=== PATIENT | female | born 1955 | race Caucasian/White ===

== ENCOUNTER → 2017-12-03 | Outpatient (CLI) | payer BC ==
--- NOTE | 2017-12-05 13:18 | MM ---
Reason for exam: screening (asymptomatic). Last mammogram was performed 6 years and 10 months ago. History: Patient is postmenopausal. Family history of breast cancer in paternal grandmother at age 50. Physical Findings: A clinical breast exam by your physician is recommended on an annual basis and results should be correlated with mammographic findings. MG Screening Mammo w CAD Bilateral CC and MLO view(s) were taken. Prior study comparison: January 25, 2011, mammogram, performed at [facility]. There are scattered fibroglandular densities. No significant changes when compared with prior studies. ASSESSMENT: Negative, BI-RAD 1 RECOMMENDATION: Routine screening mammogram of both breasts in 1 year.
== END | disposition home or self-care (01) ==
LOC: RADMAMWWP 13:00
PROVIDERS: ATTEND Obstetrics & Gynecology
DX: Z12.31 Encounter for screening mammogram for malignant neoplasm of breast (principal)
CPT/HCPCS: 77067

== ENCOUNTER → 2018-02-18 | Outpatient (CLI) | payer BC ==
--- NOTE | 2018-02-18 22:47 | MR ---
EXAMINATION TYPE: MR lumbar spine wo con DATE OF EXAM: 02/18/2018 6:35 PM COMPARISON: NONE HISTORY: Low Back pain Right Leg Pain x3 months Multiplanar, MultiSpin echo imaging of the lumbar spine was performed. L1-L2: Normal disc appearance without desiccation. No herniation, protrusion or disc bulging. No ca nal stenosis is present. Foramina are patent bilaterally. L2-L3: Normal disc appearance without desiccation. No herniation, protrusion or disc bulging. No ca nal stenosis is present. Foramina are patent bilaterally. L3-L4: Mild disc desiccation. Grade 1 anterolisthesis L3 on L4 measuring 2 mm. Mild posterior disc bu lge without evidence for rema disc herniation hypertrophy of the ligamentum flavum and facet joint a rthropathy resulting in borderline central stenosis. L4-L5: Moderate to severe disc desiccation. Mild posterior disc bulge. No evidence for herniation pro trusion or central stenosis. No definite foraminal encroachment. L5-S1: Severe disc desiccation. Posterior disc bulge. Ventral and dorsal spondylosis mild effacement ventral thecal sac. No evidence for sternal herniation or central stenosis. Mild bilateral foraminal encroachment. Lumbar segments are intact. No paraspinal masses are identified. Conus medullaris has a normal appe arance. IMPRESSION: 1. Degenerative disc disease with disc bulging is noted.
== END | disposition home or self-care (01) ==
LOC: RADMRIMAIN 18:01
PROVIDERS: ATTEND Orthopaedic Surgery
DX: M51.26 Other intervertebral disc displacement, lumbar region (principal); M51.36 Other intervertebral disc degeneration, lumbar region
CPT/HCPCS: 72148

== ENCOUNTER → 2018-03-18 | Outpatient (CLI) | payer BC ==
[2018-03-18 13:04] VITALS: PULSE 81; RESP 16
--- NOTE | 2018-03-18 13:30 | P.HPIM ---
History of Present Illness H&P Date: 03/18/18 Chief Complaint: low back and right hip pain This is a 62-year-old patient referred by Dr. Clayton for chronic pain in low back with radiation to right hip. Patient has been taking only OTC medications for pain. Patient denies adverse drug effects from medications. Patient also denies new-onset weakness, bowel/bladder incontinence, or any other signs or symptoms of cauda equina syndrome. There are no signs of acute intoxication, and no indications of medication diversion or overuse. Patient notes that pain worsens significantly with standing up straight and walking long distances, and improves with rest, ice, and medication. Patient did also have hip surgery believing that hip OA was causing her problem, but her pain has persisted despite previous surgery and subsequent physical therapy. Patient has used several types of medications for pain, including NSAIDS, Tylenol. Patient HAS had surgery (R JAMES). Patient HAS NOT had injections previously. Patient HAS had physical therapy recently without substantial relief. In addition to above, 13-point review of systems is also negative for chest pain , shortness of breath, changes in vision, changes in hearing, new onset weakness , abdominal pain, diarrhea, extreme fatigue, malaise, fever, skin changes, homicidal or suicidal ideation, or bowel or bladder incontinence. Vital Signs: Reviewed in EMR Gen: WDWN, AAOx3, NAD HEENT: NCAT, EOMI, hearing grossly normal Pulm: resp unlabored Abd: soft, NT, ND Neck: supple, trachea midline ROM in flexion lumbar spine: reduced ROM in extension lumbar spine: reduced Lumbar paravertebral tenderness: + Facet loading: + R side > L side SI joint tenderness: + R side Ramiro's test: neg Straight leg raise: neg Past Medical History Past Medical History: Asthma, Osteoarthritis (OA), Thyroid Disorder Additional Past Medical History / Comment(s): back pain, History of Any Multi-Drug Resistant Organisms: None Reported Past Surgical History: Section, Joint Replacement, Tonsillectomy Additional Past Surgical History / Comment(s): anterior approach rt hip replacement. Past Anesthesia/Blood Transfusion Reactions: Motion Sickness, Postoperative Nausea & Vomiting (PONV) Past Psychological History: No Psychological Hx Reported Smoking Status: Former smoker Past Alcohol Use History: Rare Additional Past Alcohol Use History / Comment(s): QUIT SMOKING 2000, smoked for 5 yrs, 1/2 PPD Past Drug Use History: None Reported - Past Family History Mother Family Medical History: Cancer Additional Family Medical History / Comment(s): lung cancer Father Family Medical History: Cancer Additional Family Medical History / Comment(s): Prostate cancer Sister(s) Family Medical History: Diabetes Mellitus Daughter(s) Family Medical History: No Reported History Son(s) Family Medical History: No Reported History Medications and Allergies Home Medications Medication Instructions Recorded Confirmed Type Loratadine [Claritin] 10 mg PO DAILY 09/12/16 03/18/18 History Albuterol Inhaler [Ventolin Hfa 1 - 2 puff INHALATION Q6HR PRN 09/17/16 History Inhaler] Ibuprofen [Motrin] 800 mg PO TID PRN 03/14/18 03/18/18 History Levothyroxine Sodium [Synthroid] 150 mcg PO DAILY 03/14/18 03/18/18 History Acetaminophen Tab [Tylenol] 2 tab PO BID PRN 03/18/18 03/18/18 History Allergies Allergy/AdvReac Type Severity Reaction Status Date / Time Sulfa (Sulfonamide Allergy Rash/Hives Verified 03/18/18 12:48 Antibiotics) gold Au 198 AdvReac Rash/Hives Verified 03/18/18 12:48 nickel AdvReac Rash/Hives Verified 03/18/18 12:48 Physical Exam Vitals: Vital Signs Pulse Resp Pulse Ox 03/18/18 12:51 81 16 99 Results Comments: MRI lumbar spine without contrast demonstrates mild disc desiccation at the L3- L4 level with mild posterior disc bulge without evidence for rema disc herniation. There is hypertrophy of ligamentum flavum and facet joint arthropathy resulting in borderline central stenosis. At the L4-L5 level is moderate to severe disc desiccation with mild posterior disc bulge. At the L5- S1 level there is severe disc desiccation with posterior disc bulge and ventral and dorsal spondylosis causing mild effacement of the ventral thecal sac. There is no evidence for central stenosis. Assessment and Plan (1) Lumbar spondylosis Current Visit: Yes Status: Chronic Code(s): M47.816 - SPONDYLOSIS W/O MYELOPATHY OR RADICULOPATHY, LUMBAR REGION SNOMED Code(s): 209290063 (2) Lumbar degenerative disc disease Current Visit: Yes Status: Chronic Code(s): M51.36 - OTHER INTERVERTEBRAL DISC DEGENERATION, LUMBAR REGION SNOMED Code(s): 80999159 Plan: Plan: 1. Explanation: Opioid and psychological risk scores were reviewed. Diagnoses , prognoses, and multiple treatment options including but not limited to physical therapy, interventional therapies, adjuvant medical therapies, narcotic medication therapies, and surgery were discussed with the patient and all questions were answered to the patient's satisfaction. 2. Opioid agreement: no opioids prescribed today 3. Counseling: The patient was counseled extensively on BODY MASS INDEX, EXERCISE. Specifically, the patient was instructed regarding the importance of weight control, and exercise in the context of both chronic pain and overall health. 4. Procedures: R lumbar MBB; if little relief, consider R SIJ injection 5. Consultations: none, patient has tried physical therapy and conservative treatment with medications and hip surgery without relief, and she does not want opioids 6. Investigations: none 7. Medications: none prescribed 8. Morphine equivalents per day prescribed: zero 9. Disposition: f/u for procedure as scheduled PQRS measures: 1-Patient's medications are documented in the chart. 2-Tobacco use is negative, counseling given 3-Patient has not had a pneumococcal vaccine. 4-Advanced care planning discussed, patient unable to give. 5-Opioid contract NOT signed with the patient. 6-Pain positive, follow-up visit or procedure scheduled 7-Patient's blood pressure measured and documented, and patient will follow up with the primary care due to hypertension. 8-Patient's weight was measured, and body mass index ABOVE the normal limits, and counseling was done. Patient instructed to follow up with PCP. 9-Patient WAS NOT identified as an unhealthy alcohol user. Time with Patient: Greater than 30
== END | disposition home or self-care (01) ==
LOC: PNWHC3 12:35
PROVIDERS: ATTEND Anesthesiology
DX: G89.29 Other chronic pain (principal); M54.5 Low back pain; M51.36 Other intervertebral disc degeneration, lumbar region; M47.816 Spondylosis without myelopathy or radiculopathy, lumbar region; M25.551 Pain in right hip; M16.10 Unilateral primary osteoarthritis, unspecified hip; J45.909 Unspecified asthma, uncomplicated; Z79.1 Long term (current) use of non-steroidal anti-inflammatories (NSAID); Z79.891 Long term (current) use of opiate analgesic; Z98.890 Other specified postprocedural states; Z87.891 Personal history of nicotine dependence; Z96.641 Presence of right artificial hip joint; Z79.51 Long term (current) use of inhaled steroids; Z88.2 Allergy status to sulfonamides; Z91.048 Other nonmedicinal substance allergy status
CPT/HCPCS: 99211

== ENCOUNTER 2018-05-13 07:18 | Day surgery (SDC) | payer BC ==
[2018-05-08 14:10] VITALS: BMI 30.4
[~2018-05-13 07:18] MED LIST: LACTATED RINGERS 1,000 ML IV SCH
[2018-05-13 08:22] VITALS: RESP 16; TEMP 97.7
[2018-05-13] MEDS ORDERED: LIDOCAINE 1% 20 ML VIAL (10MG/ML) FOR IV START INTRADERMA ONE (08:37)
--- NOTE | 2018-05-13 09:26 | P.PCN ---
Date of Procedure: 05/13/18 Procedure(s) Performed: PREOPERATIVE DIAGNOSIS : 1- Lumbar spondylosis with Facet Arthropathy without myelopathy . 2- Lumber degenerative disc disease POSTOPERATIVE DIAGNOSIS: 1- Lumbar spondylosis with Facet Arthropathy without myelopathy . 2- Lumber degenerative disc disease PROCEDURE: Diagnostic Right L3 -4 , L4 -5 , and L5-S1 medial branch block under fluoroscopy ANESTHESIA: Local with 1% lidocaine 3 ml , moderate sedation with intravenous Versed 1 mg and Fentanyl 50 mcg. EBL: Minimal COMPLICATION: None. IV FLUIDS: 100 mL of normal saline. PROCEDURE INDICATION: Chronic low back pain secondary to Facet arthropathy unresponsive to conservative treatment. PROCEDURE DESCRIPTION: the patient was seen and identified in the preop holding area , risks and benefits and possible complications of the procedure and alternative were discussed with the patient, and the patient agreed to proceed with the procedure and signed the consent IV was started and vital signs monitored during the procedure and fluoroscopy was used to maximize the benefit and accuracy of the needle placement, and sedation was given to decrease patient anxiety, patient was taken to the procedure room and placed in prone position vital signs monitored in the back prepped with chlorhexidine X3 then under strict sterile technique using a right oblique fluoroscopy ,the junction of the transverse process and the superior articulating process of the right L3- 4 , L4- 5, and L5-S1 vertebra which corresponding to the fluoroscopy image of the eye of the Kenn dog on the block side for the medial branches and subsequently , after local infiltration of skin and subcu tissuies with lidocaine 1% one mL at each level ,then 22- gauge Quincke-type needles , 3 needle was used , each one of them placed at the junction of the base of the transverse process and the superior articular process at the appropriate level, and the needle was advanced until the periosteum contacted, needle placement confirmed with AP oblique and lateral view and after appropriate needle placement confirmed, and after negative aspiration for heme and CSF and there was no paresthesia 1-1/2 mL of Marcaine 0.5% mixed with 40 mg Kenalog , then half mL injected at each level after negative aspiration the needle subsequently removed intact. At the end of the procedure and the needles removed and a bandage applied after the skin was cleaned the cleaning solution patient taken to recovery room in stable condition and monitors in the recovery room for 20-30 minutes and discharged home in stable condition after discharge criteria met and patient will follow up with the pain clinic in 2-4 weeks
[2018-05-13] MEDS ORDERED: IV FLUID CONTINUATION 1,000 ML IV ONE (09:35)
[2018-05-13 09:37] VITALS: BP 106/58; PULSE 61
--- NOTE | 2018-05-13 11:47 | FL ---
Fluoroscopy HISTORY: Pain 9 seconds fluoroscopy time supplied to the referring clinician. 2 intraoperative C-arm images docume nt the procedure. See dictated report from anesthesia.
== END 2018-05-13 12:16 | disposition home or self-care (01) ==
LOC: ORPAIN 07:18
PROVIDERS: ATTEND Specialist
DX: G89.29 Other chronic pain (principal); M47.816 Spondylosis without myelopathy or radiculopathy, lumbar region; M51.36 Other intervertebral disc degeneration, lumbar region; J45.909 Unspecified asthma, uncomplicated; Z78.0 Asymptomatic menopausal state; Z88.2 Allergy status to sulfonamides; Z91.048 Other nonmedicinal substance allergy status
CPT/HCPCS: 64493; 64494; 64495; J2250; J3010

== ENCOUNTER 2018-05-27 08:36 | Day surgery (SDC) | payer BC ==
[2018-05-21 09:11] VITALS: BMI 30.4
[2018-05-27 09:12] VITALS: RESP 16; TEMP 98.6
[2018-05-27] MEDS ORDERED: LIDOCAINE 1% 20 ML VIAL (10MG/ML) FOR IV START INTRADERMA ONE (09:29)
--- NOTE | 2018-05-27 10:54 | P.PCN ---
Date of Procedure: 05/27/18 Surgeon: Kyler Quigley Pathology: none sent Condition: stable Disposition: PACU Description of Procedure: PREOPERATIVE DIAGNOSIS : 1- Lumbar spondylosis with Facet Arthropathy without myelopathy . 2- Lumber degenerative disc disease POSTOPERATIVE DIAGNOSIS: 1- Lumbar spondylosis with Facet Arthropathy without myelopathy . 2- Lumber degenerative disc disease PROCEDURE: Diagnostic Right L3 -4 , L4 -5 , and L5-S1 medial branch block under fluoroscopy ANESTHESIA: Local with 1% lidocaine 3 ml , moderate sedation with intravenous Versed only. . EBL: Minimal COMPLICATION: None. PROCEDURE INDICATION: Chronic low back pain secondary to Facet arthropathy unresponsive to conservative treatment. PROCEDURE DESCRIPTION: the patient was seen and identified in the preop holding area , risks and benefits and possible complications of the procedure and alternative were discussed with the patient, and the patient agreed to proceed with the procedure and signed the consent IV was started and vital signs monitored during the procedure and fluoroscopy was used to maximize the benefit and accuracy of the needle placement, and sedation was given to decrease patient anxiety, patient was taken to the procedure room and placed in prone position vital signs monitored in the back prepped with chlorhexidine X3 then under strict sterile technique using a right oblique fluoroscopy ,the junction of the transverse process and the superior articulating process of the right L3- 4 , L4- 5, and L5-S1 vertebra which corresponding to the fluoroscopy image of the eye of the Kenn dog on the block side for the medial branches and subsequently , after local infiltration of skin and subcu tissuies with lidocaine 1% one mL at each level ,then 22- gauge Quincke-type needles , 3 needle was used , each one of them placed at the junction of the base of the transverse process and the superior articular process at the appropriate level, and the needle was advanced until the periosteum contacted, needle placement confirmed with AP oblique and lateral view and after appropriate needle placement confirmed, and after negative aspiration for heme and CSF and there was no paresthesia 1-1/2 mL of Ropivacaine 0.5% mixed with 40 mg Kenalog , then half mL injected at each level after negative aspiration the needle subsequently removed intact. At the end of the procedure and the needles removed and a bandage applied after the skin was cleaned the cleaning solution patient taken to recovery room in stable condition and monitors in the recovery room for 20-30 minutes and discharged home in stable condition after discharge criteria met and patient will follow up with the pain clinic in 2-4 weeks
[2018-05-27] MEDS ORDERED: IV FLUID CONTINUATION 1,000 ML IV ONE (11:05)
[2018-05-27 11:21] VITALS: BP 141/78; PULSE 64
--- NOTE | 2018-05-27 11:30 | FL ---
EXAMINATION TYPE: FL guided pain mgmt statistic DATE OF EXAM: 05/27/2018 HISTORY: Flouroscopy time 8 seconds of fluoroscopy provided. IMPRESSION: 1. Fluoroscopy time.
== END 2018-05-27 11:35 | disposition home or self-care (01) ==
LOC: ORPAIN 08:36
PROVIDERS: ATTEND Anesthesiology
DX: G89.29 Other chronic pain (principal); M47.816 Spondylosis without myelopathy or radiculopathy, lumbar region; Z88.2 Allergy status to sulfonamides; J45.909 Unspecified asthma, uncomplicated
CPT/HCPCS: 64493; 64494; 64495; J2250; J3301; 99152

== ENCOUNTER → 2018-06-25 | Outpatient (CLI) | payer BC ==
[2018-06-25 13:33] VITALS: BP 157/97; PULSE 86; RESP 16
--- NOTE | 2018-06-25 13:43 | P.PN ---
Progress Note - Text Progress Note Date: 06/25/18 Patient presents for follow-up visit status post right lumbar medial branch blocks 2. Patient states she had 100% relief for greater than 2 weeks with each procedure. She states that she had overall complete resolution of symptoms with improved ADLs, was able to walk and hike on her last vacation. Patient is requesting right side lumbar radiofrequency ablation. Patient did not require any [id number] medications for pain during the past 2 weeks of pain relief Patient also denies new-onset weakness, bowel/bladder incontinence, or any other signs or symptoms of cauda equina syndrome. There are no signs of acute intoxication, and no indications of medication diversion or overuse. In addition to above, 13-point review of systems is also negative for chest pain , shortness of breath, changes in vision, changes in hearing, new onset weakness , abdominal pain, diarrhea, extreme fatigue, malaise, fever, skin changes, homicidal or suicidal ideation, or bowel or bladder incontinence. Vital Signs: Reviewed in EMR Gen: WDWN, AAOx3, NAD HEENT: NCAT, EOMI, hearing grossly normal Pulm: resp unlabored Abd: soft, NT, ND Neck: supple, trachea midline ROM in flexion lumbar spine: reduced ROM in extension lumbar spine: reduced Lumbar paravertebral tenderness: + Facet loading: + R side > L side SI joint tenderness: + R side Ramiro's test: neg Straight leg raise: neg Imaging MRI lumbar spine without contrast demonstrates mild disc desiccation at the L3- L4 level with mild posterior disc bulge without evidence for rema disc herniation. There is hypertrophy of ligamentum flavum and facet joint arthropathy resulting in borderline central stenosis. At the L4-L5 level is moderate to severe disc desiccation with mild posterior disc bulge. At the L5- S1 level there is severe disc desiccation with posterior disc bulge and ventral and dorsal spondylosis causing mild effacement of the ventral thecal sac. There is no evidence for central stenosis. Assessment: 1. Lumbar spondylosis without myelopathy 2. Anteriolisthesis of L3-L4 3. Lumbar degenerative disc disease Plan: 1. Explanation: Opioid and psychological risk scores were reviewed. Diagnoses , prognoses, and multiple treatment options including but not limited to physical therapy, interventional therapies, adjuvant medical therapies, narcotic medication therapies, and surgery were discussed with the patient and all questions were answered to the patient's satisfaction. 2. Opioid agreement: no opioids prescribed today 3. Counseling: The patient was counseled extensively on BODY MASS INDEX, EXERCISE. Specifically, the patient was instructed regarding the importance of weight control, and exercise in the context of both chronic pain and overall health. 4. Procedures: Right lumbar radiofrequency ablation L3-L4, L4-L5, L5-S1 5. Consultations: none, patient has tried physical therapy and conservative treatment with medications and hip surgery without relief, and she does not want opioids 6. Investigations: none 7. Medications: none prescribed 8. Morphine equivalents per day prescribed: zero 9. Disposition: Right lumbar radiofrequency ablation L3-L4, L4-L5, L5-S1 PQRS measures: 1-Patient's medications are documented in the chart. 2-Tobacco use is negative, counseling given 3-Patient has not had a pneumococcal vaccine. 4-Advanced care planning discussed, patient unable to give. 5-Opioid contract NOT signed with the patient. 6-Pain positive, follow-up visit or procedure scheduled 7-Patient's blood pressure measured and documented, and patient will follow up with the primary care due to hypertension. 8-Patient's weight was measured, and body mass index ABOVE the normal limits, and counseling was done. Patient instructed to follow up with PCP. 9-Patient WAS NOT identified as an unhealthy alcohol user.
== END | disposition home or self-care (01) ==
LOC: PNWHC3 13:18
PROVIDERS: ATTEND Anesthesiology
DX: M43.16 Spondylolisthesis, lumbar region (principal); M51.36 Other intervertebral disc degeneration, lumbar region; M47.816 Spondylosis without myelopathy or radiculopathy, lumbar region
CPT/HCPCS: 99211

== ENCOUNTER → 2018-08-04 | Outpatient (CLI) | payer BC ==
[2018-08-04 15:55] VITALS: BP 143/104; PULSE 98; RESP 16
--- NOTE | 2018-08-05 08:51 | P.PAINPG ---
Subjective Progress Note Date: 08/04/18 This is follow-up visit for this patient with a history of severe and chronic low back pain secondary to lumbar degenerative disc diseases , lumbar spondylosis with facet arthropathy, sacroiliitis We have done interventional pain procedures diagnostic medial branch block lumbar area Right side L3-4, L4-5 ,L5-S1 patient with 100% relief after each block, and the patient is supposed to be scheduled for radiofrequency ablation of the medial branch lumbar area on the right side, but her insurance did not approve the procedure, patient currently complaining of low back pain mainly on the right side in the buttock area Patients currently on Motrin and Tylenol Patient denies any side effects of the medication, denies excessive drowsiness or sleepiness, denies suicidal ideation, and reports that the current pain medication is helping to control the pain and improve activity of daily living Patient denies any motor or sensory deficit , patient denies any fever or night sweats, denies any change in the bowel movements or urination Physical Examinations : 1-Constitutional : Cooperative , not in acute distress . 2-HEENT : nech ; supple , no Lymphadenopathy , no Thyromegaly , normal thyroid size . eyes : no ptosis , no icterus, no photophobia . ENT : normal of hearing , normal oropharynx , no Thrush . 3- Respiratory : Chest clear to auscultations Bilaterally , no wheezing , no Rhonchi . 4- Cardiovascular : regular rate and rhythem , S1 , S2 , no S3 , no S4. 5- Gastrointestinal : abdomen soft no tenderness , bowel sounds positive all four quadrents , no organomegally . 6- Genitourinary : Defferred . 7- neurologic: Cranial nerve II to XII intact , no focal neurological deffecit . 8- Psychatric: alert , oriented X 3 , appropriate affect , intact judgment and insight . 9- Lymphatic : no Lymphadenopathy . 10- Musculoskeltal : exams of the Lumber spine =motor strength lower extremities ,thigh and legs .5/5 deep tendon reflexes : normal Knee Jerk , normal ankle Jerk . lumber facet Loading Test positive strait leg raising test negative bilaterally Fabere test negative bilaterally Range of motion: Range of motion in flexion of the lumbar spine 90 degrees Range of motion range of motion of extension of the lumbar spine 30 Sever tenderness over the Sacroiliac joint on the Right , Assessment and plan = Chronic low back pain secondary to lumbar degenerative disc disease , lumbar spondylosis with facet arthropathy without myelopathy on the right sacroiliitis Patient had 100% decrease in her pain level after the diagnostic medial branch block, and she will be in good candidate to have radiofrequency ablation of the medial branch lumbar area on the right side, her [employer] insurance did not approve the radiofrequency ablation of the medial branch lumbar area, and because patient had clinical finding of right sacroiliitis, she could benefit from right-sided sacroiliac joint steroid injection Procedure risk and benefits and alternatives discussed with the patient and she agreed with the preceding Objective - Vital Signs Vital signs: Vital Signs Temp Pulse 98 08/04/18 15:48 Resp 16 08/04/18 15:48 BP 143/104 08/04/18 15:48 Pulse Ox 98 08/04/18 15:48 Intake & Output 08/04/18 08/05/18 08/05/18 18:59 06:59 18:59 Weight 90.718 kg PQRS Measure Charge Sheet Measure #130: Documentation of Current Meds in Medical Chart: Patient's medications documented in chart Measure #226: Tobacco Use: Screen & Cessation Intervention: Pt not a tobacco user Measure #111: Pneumonia Vaccination: Pneumococcal vaccine administered or previously received Measure #47: Advance Care Plan: Advance care planning discussed & documented, pt chose/unable to give Measure #412: Opioid Treatment Agreement: No documentation of signed opioid treatment agreement Measure #408: Opioid Therapy Follow-up Evaluation: Patient had NO f/u eval minimum every 3 months during opioid therapy Measure #317: Preventitive Care & Scrn High Bld Press & F/U: Pre-hypertensive or hypertensive BP documented, pt will f/u with PCP Measure #128: Body Mass Index (BMI) Screening & Follow-up: BMI documented ABOVE normal parameters - f/u documented Measure #131: Pain Assessment & Follow-up: Pain positive & plan documented, Follow-up scheduled Measure #431: Unhealthy Alcohol Use Preventative Care & Scrn: Patient not identified as an unhealthy alcohol user PQRS Narrative: Smoking Status Former smoker Do You Want the Pneumonia Yes Vaccine AT THIS TIME? Blood Pressure 143/104 Pain Intensity [Right Lower 0 Back] Scale Used Numeric (1 - 10) Hx Alcohol Use (MH) No Home Medications: Ambulatory Orders Loratadine [Claritin] 10 mg PO DAILY 09/12/16 Albuterol Inhaler [Ventolin Hfa Inhaler] 1 - 2 puff INHALATION Q6HR PRN Ibuprofen [Motrin] 800 mg PO TID PRN 03/14/18 Levothyroxine Sodium [Synthroid] 175 mcg PO DAILY 03/14/18 Acetaminophen Tab [Tylenol] 1,000 mg PO BID PRN 03/18/18 Phentermine HCl 37.5 mg PO DAILY 05/08/18 Fluticasone Nasal [place] [Flonase Nasal [place]] 2 spr EA NOSTRIL BID 07/11/18 Controlled Substance Measures - Controlled Substance Measures Is patient prescribed a controlled substance at discharge?: No When asked, does pt state using other controlled substances?: No If prescribed controlled substance>3 days was MAPS reviewed?: No If Rx opioid, was Start Talking consent form obtained?: No If opioid is for acute pain is fill amount 7 days or less?: No Was information provided regarding opioid addiction?: No
== END | disposition home or self-care (01) ==
LOC: PNWHC3 13:47
PROVIDERS: ATTEND Specialist
DX: G89.29 Other chronic pain (principal); M54.5 Low back pain; M51.36 Other intervertebral disc degeneration, lumbar region; M47.816 Spondylosis without myelopathy or radiculopathy, lumbar region; M46.86 Other specified inflammatory spondylopathies, lumbar region; M46.1 Sacroiliitis, not elsewhere classified; Z79.1 Long term (current) use of non-steroidal anti-inflammatories (NSAID); Z79.899 Other long term (current) drug therapy; Z87.891 Personal history of nicotine dependence
CPT/HCPCS: 99211

== ENCOUNTER 2018-08-25 06:24 | Day surgery (SDC) | payer BC ==
[2018-08-22 10:08] VITALS: BMI 30.4
[2018-08-25] MEDS ORDERED: SODIUM CHLORIDE 0.9% 500 ML 500 ML IV SCH (06:32)
[2018-08-25 06:44] VITALS: RESP 20; TEMP 97.7
--- NOTE | 2018-08-25 07:51 | P.PCN ---
Date of Procedure: 08/25/18 Procedure(s) Performed: Procedure= Right sacral iliac joints steroid injection under fluoroscopy guidance Preoperative diagnosis= 1-right sacroiliitis 2-lumbar spondylosis with facet arthropathy Postoperative diagnosis= same as preop diagnosis Complication = none Condition= stable Anesthesia= moderate sedation with intravenous Versed 2 mg ,and local infiltration with lidocaine 1% 3 mL Indication for the procedure= patient complaining of low back pain , examination was positive for severe tenderness over the right sacroiliac joints and patient diagnosed with sacroiliitis, for this reason he/ she was good candidate for sacroiliac joint steroid injection. Description of the procedure= procedure risk and benefits discussed with the patient, including but not limited, risk of infection and bleeding, and ALLERGIC reaction to the medication and not complete pain relief and patient agreed with the preceding patient taken to the operating room, placed in prone position or standard monitors applied to the patient then after induction of anesthesia back prepped with chlorhexidine 3 times , Then under strict sterile technique, first I did the right sacroiliac joint the which was identified under fluoroscopy guidance been local infiltration of the skin and subcu interstitial with lidocaine 1% then 22-gauge Quincke Needle advanced slowly under fluoroscopy and placed in the right sacroiliac joint needle placement confirmed with AP and oblique and lateral view and after appropriate needle placement confirmed and after negative aspiration, or heme , then Ropivacaine 0.5% 3 mL, and 40 mg of Kenalog mixed together and injected in the right sacroiliac joint after negative aspiration patient tolerated the procedure well without any complication.,and she will follow up in clinic 3 weeks
[2018-08-25 08:18] VITALS: BP 130/82; PULSE 81
--- NOTE | 2018-08-25 09:00 | FL ---
EXAMINATION TYPE: FL guided pain mgmt statistic DATE OF EXAM: 08/25/2018 HISTORY: Flouroscopy time 2 seconds of fluoroscopy provided. IMPRESSION: 1. Fluoroscopy time.
== END 2018-08-25 08:28 | disposition home or self-care (01) ==
LOC: ORPAIN 06:24
PROVIDERS: ATTEND Specialist
DX: M46.1 Sacroiliitis, not elsewhere classified (principal); M47.816 Spondylosis without myelopathy or radiculopathy, lumbar region
CPT/HCPCS: 27096; J2250; J3301

== ENCOUNTER → 2018-12-10 | Outpatient (CLI) | payer OTHER ==
--- NOTE | 2018-12-11 01:06 | MR ---
EXAMINATION TYPE: MR knee RT wo con DATE OF EXAM: 12/10/2018 COMPARISON: None HISTORY: Right Knee Pain and Swelling, x 2 weeks TECHNIQUE: Multiplanar, multisequence imaging of the right knee is performed without IV contrast. FINDINGS: There is mild knee joint effusion. There are varicose veins around the knee. The anterior and posteri or cruciate ligaments are intact. There is increased signal in the anterior horn of the lateral meniscus horizontally and vertically. T here is a horizontal increased signal within the posterior horn lateral meniscus. There is mild degenerative thinning of the medial meniscus without a complete tear. I see no bony sammy tructive process. There is no evidence of a fracture. The collateral ligaments appear intact. There i s mild subcutaneous edema anterior to the knee and proximal tibia. IMPRESSION: Mild knee joint effusion. Subcutaneous edema. Varicose veins. Complex tear of the anterior horn of the lateral meniscus. Horizontal tear posterior horn lateral men iscus. Minimal osteoarthritic narrowing of the lateral joint space.
== END | disposition home or self-care (01) ==
LOC: RADMRIMAIN 18:00
PROVIDERS: ATTEND Orthopaedic Surgery
DX: S83.271A Complex tear of lateral meniscus, current injury, right knee, initial encounter (principal); M17.11 Unilateral primary osteoarthritis, right knee

== ENCOUNTER → 2019-01-21 | Outpatient (CLI) | payer OTHER ==
[2019-01-21 08:04] LABS: Basophils # (A) 0.1 k/uL (0-0.2); Basophils % (A) 1 %; Eosinophils # (A) 0.5 k/uL (0-0.7); Eosinophils % (A) 6 %; HCT 43.9 % (34.0-46.0); HGB 13.8 gm/dL (11.4-16.0); Lymphocytes # (A) 1.4 k/uL (1.0-4.8); Lymphocytes % (A) 20 %; MCHC 31.3 g/dL (31.0-37.0); MCV 86.1 fL (80.0-100.0); Mean Platelet Volume 7.2; Monocytes # (A) 0.5 k/uL (0-1.0); Monocytes % (A) 8 %; Neutrophils # (A) 4.4 k/uL (1.3-7.7); Neutrophils % (A) 63 %; Platelet Count 235 k/uL (150-450); RBC 5.09 m/uL (3.80-5.40); RDW 13.1 % (11.5-15.5)
[2019-01-21 08:31] LABS: Potassium 4.6 mmol/L (3.5-5.1)
== END | disposition home or self-care (01) ==
LOC: LABPAT 06:59
PROVIDERS: ATTEND Orthopaedic Surgery
DX: Z01.818 Encounter for other preprocedural examination (principal); Z01.812 Encounter for preprocedural laboratory examination; M23.91 Unspecified internal derangement of right knee
CPT/HCPCS: 36415; 80051; 85025; 93005

== ENCOUNTER 2019-02-12 11:08 | Day surgery (SDC) | payer OTHER ==
[2019-02-06 15:42] VITALS: BMI 30.4
--- NOTE | 2019-02-11 21:30 | HP ---
HISTORY AND PHYSICAL REASON FOR ADMISSION: Surgery scheduled 02/12/2019. HISTORY OF PRESENT ILLNESS: Lani Slater is a 63-year-old patient seen with progressive right knee pain. Treatment options were discussed. She elected to proceed with arthroscopy. Consent was obtained. PAST MEDICAL HISTORY: Hypothyroidism, asthma. PAST SURGICAL HISTORY: section, lithotripsy. DAILY MEDICATIONS: Levothyroxine, ibuprofen, Claritin. ALLERGIES: SULFA. SOCIAL HISTORY: She denies tobacco use. PHYSICAL EXAMINATION: Evaluation of the right knee range of motion 0 to 130 degrees. Mild effusion. Tenderness medial joint line. Tenderness lateral joint line. Positive lateral Ruth's. Ligaments stable. Hip rotation without pain. Distal neurovascular exam is intact right knee. RADIOGRAPHS: Right knee radiographs revealed moderate osteoarthritic changes. Right knee MRI revealed lateral meniscal tear. IMPRESSION: Internal derangement, right knee lateral meniscal tear. PLAN: Right knee arthroscopy with partial meniscectomy and debridement. Surgery scheduled 02/12/2019. MMODL / IJN: [id number] /
[~2019-02-12 11:08] MED LIST changes: +DEXAMETHASONE SOD PHOSPHATE 10 MG/ML 1 ML VIAL IV ONE; +LIDOCAINE 1% 20 ML VIAL (10MG/ML) FOR IV START INTRADERMA PRN; +MIDAZOLAM (PF) 2 MG/2 ML VIAL IV PRN; +ONDANSETRON 4 MG/2 ML VIAL IVP ONE; +ceFAZolin IN SWFI 2 GM/20 ML SYRINGE IVP ONE; +fentaNYL (PF) 50 MCG/ML 2 ML AMP IV PRN
[2019-02-12] MEDS ORDERED: SCOPOLAMINE 1.5MG/72HR PATCH TRANSDERM ONE (12:00)
[2019-02-12] MEDS ORDERED: LIDOCAINE 1% INJ 10MG/ML (20 ML MDV) ONE (13:06)
[2019-02-12] MEDS ORDERED: HYDROmorphone (PF) 1 MG/ML ONE (13:06)
[2019-02-12] MEDS ORDERED: PROPOFOL 10 MG/ML 20 ML VIAL IV ONE (13:06)
[2019-02-12] MEDS ORDERED: MIDAZOLAM 2 MG/2 ML VIAL ONE (13:06)
[2019-02-12] MEDS ORDERED: fentaNYL (PF) 50 MCG/ML 2 ML AMP ONE (13:06)
[2019-02-12] MEDS ORDERED: LACTATED RINGERS 1,000 ML IV ONE (13:35)
[2019-02-12 14:11] VITALS: TEMP 97
[2019-02-12] MEDS: HYDROmorphone 1 MG/ML 1 ML SYRINGE IVP ONE ×2 (14:15→14:34)
--- NOTE | 2019-02-12 14:15 | P.OP ---
Date of Procedure: 02/12/19 Preoperative Diagnosis: Internal derangement right knee Postoperative Diagnosis: 1. Tear lateral meniscus right knee 2. 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 Reactive synovitis medial, lateral and suprapatellar compartments right knee Procedure(s) Performed: 1. Arthroscopic partial lateral meniscectomy right knee 2. Arthroscopic chondroplasty lateral femoral condyle right knee 3. Arthroscopic chondroplasty patella right knee 4. Arthroscopic microfracture lateral femoral condyle right knee 5. Arthroscopic partial synovectomy medial, lateral and suprapatellar compartments right knee Anesthesia: MARKA, local Surgeon: Vargas Clayton Estimated Blood Loss (ml): 8 Pathology: none sent Condition: stable Disposition: PACU Indications for Procedure: 63-year-old patient seen with progressive right knee pain. After having treatment options discussed, she elected to proceed with arthroscopy. Operative Findings: See description of procedure Description of Procedure: Patient was taken to the operative suite. Patient underwent a general anesthetic by the department of anesthesia. Patient was given preoperative antibiotics. The] lower extremity was placed in a well-padded arthroscopic leg olvera. The right leg was prepped and draped in the normal sterile orthopedic fashion. A lateral parapatellar and suprapatellar incision was made. Trochars were inserted. Arthroscopy was initiated. Suprapatellar pouch revealed diffuse thick reactive synovitis. The patellofemoral joint appeared to articulate congruently. There was grade 2/3 chondromalacia of the patella with some osteochondral tears present involving the medial facet. The scope was guided into the medial gutter. No loose bodies or plica were identified. The scope was then guided into the medial compartment. A medial parapatellar incision was made. Trocar inserted followed by probe. There was some mild superficial fraying of the posterior horn medial meniscus. There was thick reactive synovitis anteriorly. There were grade 1 chondromalacia changes of the medial compartment. I debrided the superficial fraying of the meniscus utilizing motorize shaver. I performed a partial synovectomy decompressing the thick reactive synovitis anteriorly. There was good decompression of the synovitis. Scope and probe were then guided into the intercondylar notch. Cruciates were identified, probed and found to be stable. The scope and probe were then guided into lateral compartment. There was a complex tear involving the anterior horn, mid body and posterior horn lateral meniscus. There were areas of grade 3/4 chondromalacia lateral femoral condyle with osteochondral tears present. There was thick reactive synovitis anteriorly. I performed a partial lateral meniscectomy down to stable tissue. I performed a chondroplasty of the medial femoral condyle down to stable tissue. I performed a partial synovectomy decompressing reactive synovitis. The residual meniscus was stable. There was good decompression of synovitis. There was a small area bony exposure in that weightbearing surface lateral femoral condyle post chondroplasty. I performed a microfracture to that area penetrating the bone with resultant bleeding at the microfracture site. The residual osteochondral surface was found to be stable. The scope was in guided back into the suprapatellar compartment. I used a motorized shaver into the super patellar compartment. I debrided piecemeal fragments of meniscus I encountered. I performed a chondroplasty of the patella down to stable osteochondral tissue. I performed a partial synovectomy decompressing the reactive synovitis. The shaver was removed. I took one more look on the entire knee, no residual debris. Instruments were now removed from the joint. The joint was infiltrated with 0.5% Marcaine. Steri-Strips were applied to the portal sites. Sterile dressings were applied. The patient was placed into a JUVENTINO hose. No tourniquet was utilized. The patient was awakened, transferred to a bed and taken to recovery stable satisfactory condition.
[2019-02-12 14:32] VITALS: RESP 16
[2019-02-12] MEDS ORDERED: KETOROLAC 30 MG/ML 1 ML VIAL IVP ONE (14:51)
[2019-02-12 15:25] VITALS: BP 164/90; PULSE 77
== END 2019-02-12 16:05 | disposition home or self-care (01) ==
LOC: OR 11:08
PROVIDERS: ATTEND Orthopaedic Surgery
DX: M23.341 Other meniscus derangements, anterior horn of lateral meniscus, right knee (principal); M23.351 Other meniscus derangements, posterior horn of lateral meniscus, right knee; M23.321 Other meniscus derangements, posterior horn of medial meniscus, right knee; M94.261 Chondromalacia, right knee; M65.861 Other synovitis and tenosynovitis, right lower leg; J45.909 Unspecified asthma, uncomplicated; E03.9 Hypothyroidism, unspecified; Z88.2 Allergy status to sulfonamides; Z79.890 Hormone replacement therapy; Z79.1 Long term (current) use of non-steroidal anti-inflammatories (NSAID); Z79.899 Other long term (current) drug therapy; Z91.09 Other allergy status, other than to drugs and biological substances
CPT/HCPCS: 29881; 29879; 29876; J2250; J1100; J2405; J2001; J3010; J1885; J1170; J2704; J0690

== ENCOUNTER → 2020-12-14 | Outpatient (CLI) | payer OTHER ==
--- NOTE | 2020-12-14 11:28 | CT ---
EXAMINATION TYPE: CT abdomen pelvis wo con DATE OF EXAM: 12/14/2020 COMPARISON: HISTORY: Lt renal colic CT DLP: 1116.8 mGycm Automated exposure control for dose reduction was used. TECHNIQUE: Helical acquisition of images from the lung bases through the pelvis. FINDINGS: Lack of contrast could compromise sensitivity. LUNG BASES: No significant abnormality is appreciated. AORTA: No significant abnormality is appreciated. LIVER/GB: No significant abnormality is appreciated. PANCREAS: Fatty replaced. SPLEEN: No significant abnormality is seen. ADRENALS: No significant abnormality is seen. KIDNEYS: No significant abnormality is seen. REPRODUCTIVE ORGANS: No significant abnormality is seen. URINARY BLADDER: No significant abnormality is seen. BOWEL: Small duodenal diverticulum present at the level the head of the pancreas. Extensive divertic ular change noted within the sigmoid colon. FREE AIR: No Free Air is visible. ASCITES: None visible. PELVIC ADENOPATHY: None visualized. RETROPERITONEAL ADENOPATHY: No Retroperitoneal Adenopathy visible. OSSEOUS STRUCTURES: Streak artifact due to patient's right hip arthroplasty obscures detail within t he pelvis. Degenerative disc changes are present in the visualized spine, minimal anterolisthesis gra de 1 L3-4, L4-5, loss of disc height L5-S1 with associated vacuum phenomenon, there is facet arthropa thy. IMPRESSION: NO EVIDENT RENAL CALCULI. NO HYDRONEPHROSIS. DIVERTICULOSIS. NONCONTRAST EXAM. LIMITATIONS DESCRIB ED. ADDITIONAL FINDINGS ABOVE.
== END | disposition home or self-care (01) ==
LOC: RADCTMAIN 09:20
PROVIDERS: ATTEND Urology
DX: K57.30 Diverticulosis of large intestine without perforation or abscess without bleeding (principal); K57.10 Diverticulosis of small intestine without perforation or abscess without bleeding; K86.89 Other specified diseases of pancreas; Z88.2 Allergy status to sulfonamides; Z91.048 Other nonmedicinal substance allergy status
CPT/HCPCS: 74176

== ENCOUNTER → 2021-08-09 | Outpatient (CLI) | payer OTHER, MEDICARE ==
[2021-08-09 15:23] LABS: Basophils # (A) 0.1 k/uL (0-0.2); Basophils % (A) 1 %; Eosinophils # (A) 0.2 k/uL (0-0.7); Eosinophils % (A) 2 %; HCT 44.3 % (34.0-46.0); HGB 14.2 gm/dL (11.4-16.0); Lymphocytes # (A) 1.8 k/uL (1.0-4.8); Lymphocytes % (A) 23 %; MCHC 32.1 g/dL (31.0-37.0); MCV 90.1 fL (80.0-100.0); Mean Platelet Volume 7.8; Monocytes # (A) 0.6 k/uL (0-1.0); Monocytes % (A) 7 %; Neutrophils # (A) 5.2 k/uL (1.3-7.7); Neutrophils % (A) 65 %; Platelet Count 247 k/uL (150-450); RBC 4.91 m/uL (3.80-5.40); RDW 13.1 % (11.5-15.5)
[2021-08-09 15:30] LABS: Prothrombin Time 10.8 sec (9.0-12.0)
[2021-08-09 15:31] LABS: Calcium 9.3 mg/dL (8.4-10.2); Potassium 3.8 mmol/L (3.5-5.1)
== END | disposition home or self-care (01) ==
LOC: LABPAT 14:30
PROVIDERS: ATTEND Orthopaedic Surgery
DX: Z01.812 Encounter for preprocedural laboratory examination (principal)
CPT/HCPCS: 80048; 85025; 85610; 87070

== ENCOUNTER 2021-08-14 06:02 | Day surgery (SDC) | payer OTHER ==
[2021-08-10 12:58] VITALS: BMI 31.3
--- NOTE | 2021-08-13 12:10 | HP ---
HISTORY AND PHYSICAL REASON FOR ADMISSION: Surgery is 08/14/2021 HISTORY OF PRESENT ILLNESS: aLni Slater is a 66-year-old patient seen with symptomatic left hip osteoarthritis. After discussing treatment options, she elected to proceed with direct anterior left total hip arthroplasty. Consent regarding the procedure was obtained. Medical clearance provided by Dr. Yovani Cavanaugh. PAST MEDICAL HISTORY: Hypothyroidism. PAST SURGICAL HISTORY: section, lithotripsy, right total hip arthroplasty. MEDICATIONS: Ibuprofen, levothyroxine. ALLERGIES: SULFA. SOCIAL HISTORY: She denies current tobacco use. PHYSICAL EXAMINATION: Evaluation of the left hip, she has diffuse tenderness about the hip girdle. Limited range of motion with severe pain. Positive hip impingement sign. Straight leg raise negative. Her distal neurovascular exam is intact. RADIOGRAPHS: Radiographs of the left hip reveal severe osteoarthritic changes. IMPRESSION: 1. Left hip osteoarthritis. 2. Hypothyroidism. PLAN: Direct anterior left total hip arthroplasty. Surgery scheduled for 08/14/2021. MMODL / IJN: [id number] /
[~2021-08-14 06:02] MED LIST changes: +ACETAMINOPHEN TAB 500 MG TAB PO PRN; -DEXAMETHASONE SOD PHOSPHATE 10 MG/ML 1 ML VIAL IV ONE; +DEXAMETHASONE SOD PHOSPHATE 4 MG/ML 1 ML VIAL IV ONE; -LIDOCAINE 1% 20 ML VIAL (10MG/ML) FOR IV START INTRADERMA PRN; +MELOXICAM 7.5 MG TAB PO PRN; -MIDAZOLAM (PF) 2 MG/2 ML VIAL IV PRN; +ROPIVACAINE 246.25 MG, EPINEPHrine 0.5 MG, KETOROLAC 30 MG, cloNIDine HCL/PF 80 MCG, WA... MISCELLANE PRN; +ROPIVACAINE/EPI/CLONIDINE/KET 50 ML SYRINGE MISCELLANE PRN; +TRANEXAMIC ACID 1,000 MG in SODIUM CHLORIDE 0.9% 100 ML IVPB PRN; -ceFAZolin IN SWFI 2 GM/20 ML SYRINGE IVP ONE; -fentaNYL (PF) 50 MCG/ML 2 ML AMP IV PRN
[2021-08-14] MEDS ORDERED: LIDOCAINE 1% (10MG/ML) FOR IV START INTRADERMA ONE (06:52)
[2021-08-14] MEDS ORDERED: SCOPOLAMINE 1.5MG/72HR PATCH TRANSDERM ONE (07:06)
[2021-08-14] MEDS ORDERED: MIDAZOLAM 2 MG/2 ML VIAL ONE (07:30)
[2021-08-14] MEDS ORDERED: PROPOFOL 10 MG/ML 20 ML VIAL IV ONE (07:30)
[2021-08-14] MEDS ORDERED: PHENYLEPHRINE-0.9% NACL SYG 1,000 MCG/10 ML SYRINGE ONE (07:30)
[2021-08-14] MEDS ORDERED: KETAMINE 10 MG/ML 20 ML VIAL ONE (07:30)
[2021-08-14] MEDS ORDERED: TRANEXAMIC ACID 1,000 MG/10 ML VIAL ONE (07:30)
[2021-08-14] MEDS ORDERED: SODIUM CHLORIDE 0.9% 100 ML BAG ONE (07:30)
[2021-08-14] MEDS ORDERED: ceFAZolin 1,000 MG in SODIUM CHLORIDE 0.9% 1,000 ML IRRIGATION ONE (08:20)
[2021-08-14] MEDS ORDERED: LACTATED RINGERS 1,000 ML IV ONE (08:46)
[2021-08-14] MEDS ORDERED: HYDROcodone/APAP 5-325MG 1 EACH TAB PO PRN (09:09)
[2021-08-14] MEDS ORDERED: ONDANSETRON 4 MG/2 ML VIAL IVP PRN (09:09)
[2021-08-14] MEDS ORDERED: HYDROmorphone 0.2 MG/1 ML SYRINGE IVP PRN (09:09)
[2021-08-14] MEDS ORDERED: HYDROmorphone 0.5 MG/0.5 ML SYRINGE IVP PRN ×2 (09:09)
[2021-08-14] MEDS ORDERED: NALOXONE 0.4 MG/ML 1 ML VIAL IV PRN (09:09)
--- NOTE | 2021-08-14 09:09 | P.OP ---
Date of Procedure: 08/14/21 Preoperative Diagnosis: Left hip osteoarthritis Postoperative Diagnosis: Left hip osteoarthritis Procedure(s) Performed: Direct anterior left total hip arthroplasty Implants: 1. Depuy Corail KA size 15 standard collar press-fit femoral stem 2. Depuy pinnacle 56 mm press-fit acetabular shell 3. Depuy pinnacle polyethylene acetabular liner neutral 36 mm ID 56 mm OD 4. Biolox delta ceramic femoral head +8.5 36 mm Anesthesia: local, spinal Surgeon: Vargas Clayton Team Assembly Line Machine Operator #1: Juan Jiang Estimated Blood Loss (ml): 120 Pathology: other (Femoral head) Condition: stable Disposition: PACU Indications for Procedure: 66-year-old patient seen with symptomatic left hip osteoarthritis. After having treatment options discussed, she elected to proceed with direct anterior left total hip arthroplasty. Operative Findings: See description of procedure Description of Procedure: The patient was taken to the operative suite. Patient underwent a spinal anesthetic by the department of anesthesia. Patient was then transferred to the [place] table. Patient was given preoperative IV antibiotics and TXA. Both lower extremities were placed in standard leg spars. The hip was then prepped and draped in the normal sterile orthopedic fashion. A standard anterior incision was made beginning 3 cm lateral and 1 cm distal to the ASIS extending 10 cm. Dissection was then carried down through the subcutaneous soft tissues down to the fascia overlying the tensor fascia crystal. An incision was now made through the fascia. Careful dissection was taken down exposing the tensor fascia crystal muscle. A Cobra retractor was now placed along the medial femoral neck and a second one along the lateral femoral neck. The venous circumflex vessels were now identified, cauterized and clipped. We identified the anterior hip capsule. An incision was made through the hip capsule along the lateral border. I performed a partial anterior capsulectomy. Retractors were now placed around the femoral neck itself. A femoral neck cut was now made with a sagittal saw. It was completed with an osteotome at the lateral neck area. The femoral head was now removed without difficulty. The extremity was now rotated to 60 of external rotation. It was locked in position. Residual labrum was now debrided out. Serial reaming was performed of the acetabulum while Moy hinojosa sisellen holding an anterior retractor for exposure. Once we reached the appropriate size and a trial was position and fit nicely. The appropriate size was now chosen opened and made available. It was introduced into the acetabulum without difficulty. The C-arm/fluoroscopy was now brought into the operative field. We made sure we had a true AP pelvic view. We now under direct C-arm/fluoroscopy introduced into the acetabular component with appropriate version and inclination. I held the cup in appropriate position well Moy SON used a mallet to seat the acetabular component. I noted the component now to be well seated and stable. Acetabular cup introduce her was removed. The C-arm was pulled back. An appropriate liner was introduced and clicked into position. It was felt to be stable. At this point retractors were removed. The extremity was now placed into 140 external rotation with no traction. The leg was now dropped to the ground and adducted. Appropriate retractors were now positioned along the proximal femur. We also placed our femoral look into position. Additional capsular releasing was performed to gain access to the proximal femur. We now used a box osteotome. A canal finder was now utilized. Serial broaching was now performed with the assistance of Moy SON tapping the broaches down with a mallet while held the broach in appropriate rotation and position. This was done until we reached the appropriate size with good overall rotational stability. Appropriate calcar planing was performed. A trial head/neck was placed into position. The hip was now reduced. The C- arm/fluoroscopy was brought back into the operative field. I obtained an AP pelvis demonstrating adequate leg length alignment as well as adequate sizing of the trial components. The C-arm/fluoroscopy was pulled back. Retractors were repositioned and the hip was dislocated. The leg was again taken down to the ground and adducted. Appropriate retractors were repositioned as well as the femoral hook. All trial components were removed. The femoral implant was opened along with the femoral head. The femoral implant was introduced on the appropriate handle into our pre-broached area. I held the component position well Moy SON used a mallet to seat the femoral component. The femoral component was now noted to be well seated and stable.. The femoral head was introduced with good positioning and fixation noted. Retractors were now removed. The hip was now reduced. There appeared be good positioning of the hip confirmed on intraoperative fluoroscopy. Spot films were obtained to document this. A second gram of TXA was given. The deep and superficial soft tissues were infiltrated with local analgesic. Bipolar cautery had been utilized intermittently through the procedure for hemostasis. The wound was irrigated copiously with pulse lavage mechanical irrigation. The fascia was repaired with Vicryl suture. The subcutaneous soft tissues were repaired in layers with Vicryl suture. The skin was approximated with pernio/Dermabond. Sterile dressings were applied. Patient was then awakened, transferred to a bed and taken to recovery in stable condition. Moy SON assisted with the complex procedure.
--- NOTE | 2021-08-14 09:13 | XR ---
EXAMINATION TYPE: XR Hip Limited LT DATE OF EXAM: 08/14/2021 COMPARISON: NONE HISTORY: Postop TECHNIQUE: One view submitted. FINDINGS: There is postsurgical change in near anatomic alignment. There is soft tissue edema and emphysema. IMPRESSION: 1. Postoperative change. Appears in near-anatomic alignment.
--- NOTE | 2021-08-14 09:13 | FL ---
EXAMINATION TYPE: FL guidance operating room DATE OF EXAM: 08/14/2021 HISTORY: Fluoroscopy time 10 seconds of fluoroscopy provided. IMPRESSION: 1. Fluoroscopy time.
[2021-08-14] MEDS ORDERED: ONDANSETRON 4 MG/2 ML VIAL IVP ONE (11:15)
[2021-08-14] MEDS ORDERED: KETOROLAC 15 MG/ML 1 ML VIAL ONE (11:28)
[2021-08-14] MEDS ORDERED: KETOROLAC 15 MG/ML 1 ML VIAL IVP ONE (11:28)
[2021-08-14] MEDS: HYDROmorphone 0.5 MG/0.5 ML SYRINGE IVP PRN ×3 (11:30→13:40)
[2021-08-14] MEDS: LACTATED RINGERS 1,000 ML IV SCH (15:34)
[2021-08-14] MEDS: HYDROcodone/APAP 7.5-325MG 1 EACH TAB PO PRN ×2 (15:58→22:03)
[2021-08-14] MEDS ORDERED: SENNOSIDES-DOCUSATE SODIUM 1 EACH TAB PO SCH (21:00)
[2021-08-14] MEDS ORDERED: NALTREXONE 3 MG PO SCH (21:00)
[2021-08-15] MEDS ORDERED: LEVOTHYROXINE 75 MCG TAB PO SCH (06:30)
[2021-08-15] MEDS ORDERED: LEVOTHYROXINE 100 MCG TAB PO SCH (06:30)
[2021-08-15] MEDS: LACTATED RINGERS 1,000 ML IV SCH ×2 (06:56→09:00)
[2021-08-15 07:16] VITALS: BP 124/62; PULSE 80; RESP 19; TEMP 98
[2021-08-15] MEDS ORDERED: PANTOPRAZOLE 40 MG TABLET PO SCH (07:30)
[2021-08-15 07:34] LABS: Basophils % (A) 0 %; Eosinophils % (A) 0 %; HCT 37.7 % (34.0-46.0); HGB 12.2 gm/dL (11.4-16.0); Lymphocytes # (A) 1.4 k/uL (1.0-4.8); Lymphocytes % (A) 11 %; MCH 29.1 pg (25.0-35.0); MCHC 32.3 g/dL (31.0-37.0); MCV 89.9 fL (80.0-100.0); Mean Platelet Volume 7.7; Monocytes # (A) 0.9 k/uL (0-1.0); Monocytes % (A) 7 %; Neutrophils # (A) 10.8 k/uL (1.3-7.7); Neutrophils % (A) 81 %; Platelet Count 233 k/uL (150-450); RBC 4.19 m/uL (3.80-5.40); RDW 13.1 % (11.5-15.5); WBC 13.4 k/uL (3.8-10.6)
[2021-08-15] MEDS ORDERED: ENOXAPARIN 40 MG/0.4 ML SYRINGE SQ SCH (09:00)
[2021-08-15] MEDS ORDERED: guaiFENesin 600 MG TABLET.ER PO SCH (09:00)
[2021-08-15] MEDS ORDERED: MELOXICAM 7.5 MG TAB PO SCH (09:00)
[2021-08-15] MEDS ORDERED: FAMOTIDINE 20 MG TAB PO SCH (09:00)
[2021-08-15] MEDS ORDERED: LORATADINE 10 MG TAB PO SCH (09:00)
--- NOTE | 2021-08-15 10:50 | P.PN ---
Subjective Progress Note Date: 08/15/21 Principal diagnosis: Status post direct anterior left total hip arthroplasty Patient is evaluated today at bedside, she is resting comfortably. Her pain is well-controlled. She similarly well therapy. She has no chest pain, shortness of breath, nausea vomiting. Objective - Vital Signs Vital signs: Vital Signs Temp 98.0 F 08/15/21 07:15 Pulse 80 08/15/21 07:15 Resp 19 08/15/21 07:15 BP 124/62 08/15/21 07:15 Pulse Ox 95 08/15/21 07:15 Intake & Output 08/14/21 08/15/21 08/15/21 18:59 06:59 18:59 Intake Total 2617 50 Output Total 120 Balance 2497 50 Weight 98 kg Intake: IV 1301 Intake, IV Titration 50 Amount ceFAZolin 2 gm In Sodium 50 Chloride 0.9% 50 ml @ 100 mls/hr IVPB Q8HR JUAN Rx# :[id number] Oral 1316 Output: Estimated Blood Loss 120 Other: Voiding Method Bedside Commode # Voids 1 1 - Exam Left lower extremity: Incision is clean, dry, and intact. The foam dressing is in good condition. There is minimal soft tissue swelling and ecchymosis surrounding the medial and lateral aspects of the incision. Calf is soft, no tenderness with palpation. Plantar flexion, dorsiflexion, EHL, FHL are intact. Sensory exam to light touch throughout the extremity is intact, dorsal pedis pulses 2+. - Labs CBC & Chem 7: 08/15/21 06:55 Labs: Abnormal Lab Results - Last 24 Hours (Table) 08/15/21 Range/Units 06:55 WBC 13.4 H (3.8-10.6) k/uL Neutrophils # 10.8 H (1.3-7.7) k/uL Assessment and Plan Assessment: Postoperative day #1 status post right anterior left total hip arthroplasty Plan: Pain control, plan for discharge home on oral medication GI and DVT prophylaxis, aspirin 81 mg twice a day for 30 days Wound care instructions were discussed, this including showering along with icing and elevating Encourage incentive spirometer Home health care after discharge Medical recommendations Discharge planning: Patient will be discharged home today Time with Patient: Less than 30
--- NOTE | 2021-08-15 10:55 | P.DS ---
Providers Date of admission: 08/14/2021 Expected date of discharge: 08/15/21 Attending physician: Vargas Clayton Consults: 08/14/21 09:09 Consult Physician Routine Consulting Provider: Oneil Mueller Reason/Comments: Medical management Do you want consulting provider notified?: Yes Primary care physician: [facility] Course: Date of admission: 08/14/2021 Date of discharge: 08/15/2021 Admission diagnosis: Status post direct anterior left total hip arthroplasty Discharge diagnosis: Same Attending physician: Dr. Clayton Surgical procedures: Direct anterior left total hip arthroplasty Brief history: Patient is a 66-year-old female with a history of progressive primary left hip osteoarthritis. At this point patient has failed conservative treatment measures and has opted to proceed with a elective direct anterior left total hip arthroplasty. Hospital course: Details of patient's surgery can be found in operative report. Patient tolerated the procedure well and was subsequently transported to orthopedic floor. Patient's orthopeidc and medical care was provided daily. Patient had daily laboratory tests performed for evaluation of overall blood counts. Patient had daily physical therapy to include strengthening range of motion as well as education with walker ambulation. Patient was treated with Lovenox for their postoperative DVT prophylaxis during their inpatient stay. Patient was noted to have a relatively uneventful postoperative course. Patient reported satisfactory pain control with oral pain medications by postoperative day 0. Patient showed satisfactory progress with physical therapy. Patient moved steadily through the program and had no difficulty meeting the goals by postoperative day 1. Given patient's otherwise satisfactory course and having met physical therapy goals, plan is to discharge patient home on postoperative day 1. Discharge condition/disposition: Patient will be discharged home in stable con dition. Discharge medications: Instructions are given on resumption of patient's normal daily medications per primary care recommendation, in addition patient will be prescribed [place] 5 mg/325 mg, aspirin 81 mg, Senokot-S . Discharge instructions: 1. Wound care and infection precautions, keep incision dry and covered while showering, no lotions, creams, moisturizers. No soaking, tubs, pools, hottubs. Do not scrub over the incision. 2. Weight-bear as tolerated with walker / cane until follow-up. 3. Ice and elevate when necessary. Do not exceed 20 minutes per hour with ice pack. 4. Utilize compression sleeve until seen at first follow up appointment. 5. Visiting nursing care. 6. Home physical therapy. 7. Pain meds and anticoagulants per prescription. 8. Pain medication has potential to cause constipation. Increase oral fluid and fiber intake. Contact primary care provider if you have not had a bowel movement within 48 hours after discharge 9. No anti-inflammatory medication until discussed at first post operative visit, this including Motrin, Aleve, Mobic, Diclofenac. 10. Follow up in office at 2 weeks postop with Moy Jiang PA-C/Antonio Munoz 11. Follow up with your primary care doctor 7-10 days after discharge. 12. Contact [facility] with any questions, . Procedures: Direct anterior left total hip arthroplasty Patient Condition at Discharge: Good Plan - Discharge Summary Discharge Rx Participant: Yes New Discharge Prescriptions: New Sennosides-Docusate Sodium [Senokot-S] 2 each PO HS tab Aspirin [Adult Low Dose Aspirin EC] 81 mg PO BID #60 tab HYDROcodone/APAP 5-325MG [[place] 5-325] 1 tab PO Q6HR PRN #28 tab PRN Reason: Pain Continue Loratadine [Claritin] 10 mg PO DAILY Ibuprofen [Motrin] 800 mg PO TID PRN PRN Reason: Pain Levothyroxine Sodium [Synthroid] 175 mcg PO DAILY Acetaminophen Tab [Tylenol] 1,000 mg PO BID PRN PRN Reason: Pain guaiFENesin [Mucinex] 600 mg PO DAILY [place]-3 Fatty Acids/Fish Oil [Fish Oil 1,000 mg Softgel] 1 each PO DAILY Fluticasone/Salmeterol [Advair 250-50 Diskus] 1 dose INHALATION BID Multivitamins, Thera [Multivitamin (formulary)] 1 tab PO DAILY Omeprazole 20 mg PO DAILY Naltrexone 3 Mg 3 mg PO HS Ascorbic Acid/Collagen Hydr [Collagen Plus Vit C Capsule] 1 each PO DAILY Discharge Medication List Loratadine [Claritin] 10 mg PO DAILY 09/12/16 [History] Ibuprofen [Motrin] 800 mg PO TID PRN 03/14/18 [History] Levothyroxine Sodium [Synthroid] 175 mcg PO DAILY 03/14/18 [History] Acetaminophen Tab [Tylenol] 1,000 mg PO BID PRN 03/18/18 [History] Ascorbic Acid/Collagen Hydr [Collagen Plus Vit C Capsule] 1 each PO DAILY 08/11/21 [History] Fluticasone/Salmeterol [Advair 250-50 Diskus] 1 dose INHALATION BID 08/11/21 [History] Multivitamins, Thera [Multivitamin (formulary)] 1 tab PO DAILY 08/11/21 [History] Naltrexone 3 Mg 3 mg PO HS 08/11/21 [History] [place]-3 Fatty Acids/Fish Oil [Fish Oil 1,000 mg Softgel] 1 each PO DAILY 08/11/21 [History] Omeprazole 20 mg PO DAILY 08/11/21 [History] guaiFENesin [Mucinex] 600 mg PO DAILY 08/11/21 [History] Aspirin [Adult Low Dose Aspirin EC] 81 mg PO BID #60 tab 08/15/21 [Rx] HYDROcodone/APAP 5-325MG [[place] 5-325] 1 tab PO Q6HR PRN #28 tab 08/15/21 [Rx] Sennosides-Docusate Sodium [Senokot-S] 2 each PO HS tab 08/15/21 [Rx] Follow up Appointment(s)/Referral(s): [facility] [NON-STAFF] - ([facility] will call you to schedule your first home care and home PT visits. ) Juan Jiang PAC [PHYSICIAN PUPPET DEVELOPER] - 09/01/21 9:00 am Yovani Cavanaugh DO [Primary Care Provider] - 08/28/21 2:15 pm Patient Instructions/Handouts: How to Use an Incentive Spirometer (DC), Anterior Hip Replacement (DC) Activity/Diet/Wound Care/Special Instructions: Orthopedic Discharge Instructions: 1. Wound care and infection precautions, keep incision dry and covered while showering, no lotions, creams, moisturizers. No soaking, pools, hot tubs. Do not scrub over incision. 2. Weight-bear as tolerated with walker / cane until follow-up. 3. Ice and elevate when necessary. Do not exceed 20 minutes per hour with ice pack. 4. Utilize compression sleeve until seen at first follow up appointment. 5. Pain meds and anticoagulants per prescription. 6. Pain medication has potential to cause constipation. Increase oral fluid and fiber intake. Contact primary care provider if you have not had a bowel movement within 48 hours after discharge. 7. No anti-inflammatory medication until discussed at first post operative visit, this including Motrin, Aleve, Mobic, Diclofenac. 8. Follow up in office at 2 weeks postop with Moy Jiang PA-C/Antonio Quinonez PA-C 9. Follow up with your primary care doctor 7-10 days after discharge. 10. Contact [facility] with any questions, . Wound care instructions: 1. Okay to remove foam dressing on 08/21/2021 2. Keep incision covered and dry while showering Discharge Disposition: HOME WITH HOME HEALTH SERVICES
--- NOTE | 2021-08-15 12:03 | P.CONS ---
History of Present Illness - Reason for Consult Consult date: 08/15/21 Medical management Requesting physician: Vargas Clayton - History of Present Illness HISTORY OF PRESENT ILLNESS This is a 66-year-old female patient of Dr. Cavanaugh with past medical history of gastroesophageal reflux disease, seasonal ALLERGIES, hypothyroidism, mild intermittent asthma, generalized osteoarthritis. Patient was brought into the hospital under the care of Dr. Clayton status post left total hip arthroplasty, anterior approach. Patient's vital signs have been stable. Blood work this morning reveals WBC 13.4 and hemoglobin 12.2. She has had no postop complications overnight. Patient is on Lovenox for DVT prophylaxis. She is reaching 2000- 2500 ML's on incentive spirometry. REVIEW OF SYSTEMS Constitutional: No fever, no chills, no night sweats. No weight change. No weakness, fatigue or lethargy. No daytime sleepiness. EENT: No headache. No blurred vision or double vision, no loss of vision. No loss of Hearing, no ringing in the ears, no dizziness. No nasal drainage or congestion. No epistaxis. No sore throat. Lungs: No shortness of breath, cough, no sputum production. No wheezing. Cardiovascular: No chest pain, no lower extremity edema. No palpitations. No paroxysmal nocturnal dyspnea. No orthopnea. No lightheadedness or dizziness. No syncopal episodes. Abdominal: No abdominal pain. No nausea, vomiting. No diarrhea. No constipation. No bloody or tarry stools.. No loss of appetite. Genitourinary: No dysuria, increased frequency, urgency. No urinary retention. Musculoskeletal: No myalgias. No muscle weakness, no gait dysfunction, no frequent falls. No back pain. No neck pain. Mild hip discomfort. Integumentary: No wounds, no lesions. No rash or pruritus. No unusual brui sing. No change in hair or nails. Neurologic: No aphasia. No facial droop. No change in mentation. No head injury. No headache. No paralysis. No paresthesia. Psychiatric: No depression. No anxiety. No mood swings. Endocrine: No abnormal blood sugars. No weight change. No excessive sweating or thirst. No cold intolerance. SOCIAL HISTORY Patient smoked for 5 years at one half pack per day and quit in 2009. Rare alcohol use. No marijuana or illicit drug use. She is currently from her and lives alone. Discharge plan is for home and sister will be staying with her for a couple nights. FAMILY HISTORY Mother at age 88 from lung cancer with history of smoking. Father at age 75 from prostate cancer. Patient does not have any brothers. She has 4 sisters and 2 children with no major medical problems. PHYSICAL EXAMINATION Gen: This is a 66-year-old obese female. Patient is resting in chair and appears to be comfortable and in no acute distress. HEENT: Head is atraumatic, normocephalic. Pupils equal, round. Sclerae is anicteric. NECK: Supple. No JVD. No lymphadenopathy. No thyromegaly. LUNGS: Clear to auscultation. No wheezes or rhonchi. No intercostal retr actions. HEART: Regular rate and rhythm. No murmur. ABDOMEN: Soft. Bowel sounds are present. No masses. No tenderness. EXTREMITIES: No pedal edema. No calf tenderness. Small dressing in place to t he left anterior hip, no breakthrough bleeding or drainage. No significant swelling. JUVENTINO hose in place. NEUROLOGICAL: Patient is awake, alert and oriented x3. Cranial nerves 2 through 12 are grossly intact. ASSESSMENT AND PLAN 1. Osteoarthritis status post left total hip arthroplasty, anterior approach, 08/14. Continue PT, OT, activity, pain management per orthopedics. Patient is currently on Lovenox for DVT prophylaxis. Continue incentive spirometry to reduce incidence of atelectasis and hospital-acquired pneumonia. 2. Gastroesophageal reflux disease. Continue Pepcid 20 mg daily, Protonix 40 mg daily. 3. Seasonal ALLERGIES. Continue Claritin 10 mg daily. 4. Hypothyroidism. Continue levothyroxine 175 g daily. 5. Mild intermittent asthma, stable without exacerbation.. 6. COVID-19 testing negative. DISCHARGE PLAN Home with [facility]. Impression and plan of care have been directed as dictated by the signing physician. Ann Biggs nurse practitioner acting as scribe for signing physician. Past Medical History Past Medical History: Asthma, GERD/Reflux, Osteoarthritis (OA), Thyroid Disorder Additional Past Medical History / Comment(s): back pain, History of Any Multi-Drug Resistant Organisms: None Reported Past Surgical History: Section, Joint Replacement, Orthopedic Surgery, Tonsillectomy Additional Past Surgical History / Comment(s): anterior approach rt hip replacement. PAIN CLINIC PROCEDURES, COLONOSCOPY Past Anesthesia/Blood Transfusion Reactions: Motion Sickness, Postoperative Nausea & Vomiting (PONV) Past Psychological History: No Psychological Hx Reported Smoking Status: Former smoker Past Alcohol Use History: Rare Additional Past Alcohol Use History / Comment(s): QUIT SMOKING 2000, smoked for 5 yrs, 1/2 PPD Past Drug Use History: None Reported - Past Family History Mother Family Medical History: Cancer Additional Family Medical History / Comment(s): lung cancer Father Family Medical History: Cancer Additional Family Medical History / Comment(s): Prostate cancer Sister(s) Family Medical History: Diabetes Mellitus Daughter(s) Family Medical History: No Reported History Son(s) Family Medical History: No Reported History Medications and Allergies Home Medications Medication Instructions Recorded Confirmed Type Loratadine [Claritin] 10 mg PO DAILY 09/12/16 08/14/21 History Ibuprofen [Motrin] 800 mg PO TID PRN 03/14/18 08/14/21 History Levothyroxine Sodium [Synthroid] 175 mcg PO DAILY 03/14/18 08/14/21 History Acetaminophen Tab [Tylenol] 1,000 mg PO BID PRN 03/18/18 08/14/21 History Ascorbic Acid/Collagen Hydr 1 each PO DAILY 08/11/21 08/14/21 History [Collagen Plus Vit C Capsule] Fluticasone/Salmeterol [Advair 1 dose INHALATION BID 08/11/21 08/14/21 History 250-50 Diskus] Multivitamins, Thera [Multivitamin 1 tab PO DAILY 08/11/21 08/14/21 History (formulary)] Naltrexone 3 Mg 3 mg PO HS 08/11/21 08/14/21 History [place]-3 Fatty Acids/Fish Oil [Fish 1 each PO DAILY 08/11/21 08/14/21 History Oil 1,000 mg Softgel] Omeprazole 20 mg PO DAILY 08/11/21 08/14/21 History guaiFENesin [Mucinex] 600 mg PO DAILY 08/11/21 08/14/21 History Aspirin [Adult Low Dose Aspirin EC] 81 mg PO BID #60 tab 08/15/21 Rx HYDROcodone/APAP 5-325MG [[place] 1 tab PO Q6HR PRN #28 tab 08/15/21 Rx 5-325] Sennosides-Docusate Sodium 2 each PO HS tab 08/15/21 Rx [Senokot-S] Allergies Allergy/AdvReac Type Severity Reaction Status Date / Time Sulfa (Sulfonamide Allergy Rash/Hives Verified 08/14/21 06:50 Antibiotics) gold Au 198 AdvReac Rash/Hives Verified 08/14/21 06:50 nickel AdvReac Rash/Hives Verified 08/14/21 06:50 Physical Exam Vitals: Vital Signs Temp Pulse Pulse Resp BP Pulse Ox 08/15/21 07:15 98.0 F 80 19 124/62 95 08/15/21 02:00 97.4 F L 94 66 18 100/61 08/14/21 19:20 97.9 F 66 15 129/81 98 08/14/21 15:50 97.8 F 82 16 128/85 97 08/14/21 15:00 66 16 119/63 99 08/14/21 14:30 64 18 119/73 97 08/14/21 14:00 62 16 130/74 98 08/14/21 13:30 66 18 140/88 98 08/14/21 13:00 97 F L 68 16 132/88 98 08/14/21 12:32 68 16 130/81 98 08/14/21 12:00 70 16 132/83 97 08/14/21 11:30 70 17 132/74 98 08/14/21 11:00 65 16 147/71 97 08/14/21 10:45 68 16 118/72 100 08/14/21 10:30 64 16 119/68 97 08/14/21 10:15 60 16 123/71 96 08/14/21 10:00 73 16 112/67 97 Intake and Output 08/14/21 08/15/21 08/15/21 22:59 06:59 14:59 Intake Total 1666 50 Balance 1666 50 Intake: IV 350 Intake, IV Titration 50 Amount ceFAZolin 2 gm In Sodium 50 Chloride 0.9% 50 ml @ 100 mls/hr IVPB Q8HR [facility] Rx# :[id number] Oral 1316 Other: Voiding Method Bedside Commode # Voids 2 1 Weight 98 kg Results CBC & Chem 7: 08/15/21 06:55 Labs: Abnormal Lab Results - Last 24 Hours (Table) 08/15/21 Range/Units 06:55 WBC 13.4 H (3.8-10.6) k/uL Neutrophils # 10.8 H (1.3-7.7) k/uL
== END 2021-08-15 12:07 | disposition home health service (06) ==
LOC: OR 06:02 → 4SSUR 09:30 → OR 08-15 12:07
PROVIDERS: ATTEND Orthopaedic Surgery
DX: M16.12 Unilateral primary osteoarthritis, left hip (principal); E03.9 Hypothyroidism, unspecified; K21.9 Gastro-esophageal reflux disease without esophagitis; J45.20 Mild intermittent asthma, uncomplicated; E07.9 Disorder of thyroid, unspecified; Z20.822 Contact with and (suspected) exposure to COVID-19; E66.9 Obesity, unspecified; Z96.641 Presence of right artificial hip joint; Z98.890 Other specified postprocedural states; Z87.891 Personal history of nicotine dependence; Z98.891 History of uterine scar from previous surgery; Z80.1 Family history of malignant neoplasm of trachea, bronchus and lung; Z80.42 Family history of malignant neoplasm of prostate; Z68.33 Body mass index [BMI] 33.0-33.9, adult; Z83.3 Family history of diabetes mellitus; Z84.89 Family history of other specified conditions; Z79.1 Long term (current) use of non-steroidal anti-inflammatories (NSAID); Z79.82 Long term (current) use of aspirin; Z79.890 Hormone replacement therapy; Z79.899 Other long term (current) drug therapy; Z88.2 Allergy status to sulfonamides; Z91.048 Other nonmedicinal substance allergy status
CPT/HCPCS: 97161; 86900; 86901; 85025; 86850; 88300; 87635; 73501; 27130; C1776; J2250; J0171; J1100; J0690 ×2; J2405; J1650; J1885 ×2; J2795; J2370; J2704; J0735; J1170

== ENCOUNTER → 2022-10-02 | Outpatient (CLI) | payer OTHER ==
--- NOTE | 2022-10-03 09:34 | MR ---
EXAMINATION TYPE: MR knee LT wo con DATE OF EXAM: 10/02/2022 COMPARISON: NONE HISTORY: Left knee outer pain for 3 months per patient. TECHNIQUE: Multiplanar, multisequence images of the knee is performed without IV contrast. FINDINGS: MEDIAL MENISCUS: Truncated appearance posterior horn with curvilinear increased signal along inferior margin. LATERAL MENISCUS: Lateral extrusion with globular increased signal posterior horn extends into the ce ntral body and linear extension to the posterior margin. Anterior horn has irregularity and increased signal along superior aspect. CRUCIATE LIGAMENTS: The anterior and posterior cruciate ligaments are intact and unremarkable. COLLATERAL LIGAMENTS: The medial collateral ligament and lateral collateral ligament complex are inta ct. Lateral bowing of the lateral collateral ligament complex due to meniscal protrusion and surround ing edema and curvilinear tissue of diminished T1 signal of uncertain etiology coronal image 19 from reference. EXTENSOR MECHANISM: Visualized quadriceps and patellar tendons are intact. EFFUSION: No significant suprapatellar joint effusion. POPLITEAL CYST: No popliteal/flores cyst. TRICOMPARTMENT SPACES: Moderate narrowing with mild spurring tricompartment spaces. CARTILAGE: Some cartilaginous loss in the tricompartmental spaces. No full-thickness loss seen. BONE MARROW SIGNAL: No focal abnormal marrow signal is appreciated. OTHER: No additional significant abnormality is appreciated. IMPRESSION: 1. Full-thickness tear posterior horn medial meniscus. 2. More complex full-thickness tear involving the entire lateral meniscus as detailed above. Adjacent inflammatory change causing LCL sprain injury. 3. Moderate tricompartment degenerative changes as noted above.
== END | disposition home or self-care (01) ==
LOC: RADMRIMAIN 18:48
PROVIDERS: ATTEND Orthopaedic Surgery
DX: S83.242A Other tear of medial meniscus, current injury, left knee, initial encounter (principal); S83.422A Sprain of lateral collateral ligament of left knee, initial encounter; M17.12 Unilateral primary osteoarthritis, left knee; M25.562 Pain in left knee

== ENCOUNTER → 2022-10-16 | Outpatient (CLI) | payer OTHER ==
[2022-10-16 18:51] LABS: Eosinophils # (A) 0.34 X 10*3/uL (0.04-0.35); Eosinophils % (A) 3.4 %; HCT 46.2 % (37.2-46.3); HGB 14.3 g/dL (12.0-15.0); Immature Grans, Automated 0.2 %; Lymphocytes # (A) 1.89 X 10*3/uL (0.90-5.00); Lymphocytes % (A) 19.1 %; MCH 27.8 pg (27.0-32.0); MCV 89.7 fL (80.0-97.0); Mean Platelet Volume 10.9 fL (9.5-12.2); Monocytes # (A) 0.97 X 10*3/uL (0.20-1.00); Monocytes % (A) 9.8 %; NRBC Per 100 WBC 0 /100 WBCS (0.0-0.0); Neutrophils # (A) 6.55 X 10*3/uL (1.80-7.70); Neutrophils % (A) 66.5 %; Platelet Count 287 X 10*3/uL (140-440); RBC 5.15 X 10*6/uL (4.10-5.20); RDW 13.6 % (11.5-14.5); WBC 9.87 X 10*3/uL (4.50-10.00)
[2022-10-16 19:19] LABS: Anion Gap 9.5 mmol/L (10.00-18.00); Carbon Dioxide 27.3 mmol/L (20.0-27.5); Potassium 4.8 mmol/L (3.5-5.5)
== END | disposition home or self-care (01) ==
LOC: LABPAT 12:20
PROVIDERS: ATTEND Orthopaedic Surgery
DX: Z01.812 Encounter for preprocedural laboratory examination (principal); M23.92 Unspecified internal derangement of left knee
CPT/HCPCS: 80051; 85025

== ENCOUNTER 2022-10-31 11:28 | Day surgery (SDC) | payer OTHER ==
[2022-10-26 14:13] VITALS: BMI 30.4
--- NOTE | 2022-10-30 12:29 | HP ---
HISTORY AND PHYSICAL DATE OF SURGERY: 10/31/2022. HISTORY OF PRESENT ILLNESS: Lani Slater is a 67-year-old patient seen with progressive left knee pain. We discussed options for treatment. She elected to proceed with left knee arthroscopy. Consent was obtained. PAST MEDICAL HISTORY: Asthma, hypothyroidism. PAST SURGICAL HISTORY: section, lithotripsy, and bilateral total hip arthroplasty. DAILY MEDICATIONS: 1. Levothyroxine. 2. Advair inhaler. 3. Ibuprofen. ALLERGIES: Sulfa. SOCIAL HISTORY: She denies tobacco use. PHYSICAL EVALUATION OF THE LEFT KNEE: Range of motion is 0-115. There is a mild effusion. Tenderness along the medial joint line. Positive medial Ruth's. Tenderness along lateral joint line. Positive lateral Ruth's. Ligaments are stable. Hip rotation is without pain. Distal neurovascular exam is intact. RADIOGRAPHS: Radiographs of the left knee revealed moderate osteoarthritic changes. MRI left knee revealed medial and lateral meniscal tears. IMPRESSION: 1. Internal derangement of left knee with medial and lateral meniscal tears. 2. Asthma. 3. Hypothyroidism. PLAN: Left knee arthroscopy with partial medial/lateral meniscectomy and debridement. MMODL / IJN: [id number] /
[~2022-10-31 11:28] MED LIST changes: -ACETAMINOPHEN TAB 500 MG TAB PO PRN; +HYDROmorphone 0.5 MG/0.5 ML SYRINGE IVP PRN; -MELOXICAM 7.5 MG TAB PO PRN; -ROPIVACAINE 246.25 MG, EPINEPHrine 0.5 MG, KETOROLAC 30 MG, cloNIDine HCL/PF 80 MCG, WA... MISCELLANE PRN; -ROPIVACAINE/EPI/CLONIDINE/KET 50 ML SYRINGE MISCELLANE PRN; -TRANEXAMIC ACID 1,000 MG in SODIUM CHLORIDE 0.9% 100 ML IVPB PRN
[2022-10-31] MEDS ORDERED: SCOPOLAMINE 1 MG/72 HR PATCH TRANSDERM ONE (12:33)
[2022-10-31] MEDS ORDERED: BUPIVACAIN-EPI 0.25%-1:200,000 30 ML VIAL INTRAARTIC ONE ×2 (13:02→14:16)
[2022-10-31] MEDS ORDERED: LIDOCAINE 2% INJ 20 MG/ML (2 ML VIAL) ONE (13:26)
[2022-10-31] MEDS ORDERED: PROPOFOL 10 MG/ML 20 ML VIAL IV ONE (13:26)
[2022-10-31] MEDS ORDERED: fentaNYL (PF) 50 MCG/ML 2 ML AMP ONE (13:26)
[2022-10-31] MEDS ORDERED: MIDAZOLAM 2 MG/2 ML VIAL ONE (13:26)
[2022-10-31] MEDS ORDERED: HYDROmorphone (PF) 1 MG/ML ONE (13:26)
[2022-10-31 14:32] VITALS: TEMP 96.8
--- NOTE | 2022-10-31 14:32 | P.OP ---
Date of Procedure: 10/31/22 Preoperative Diagnosis: Internal derangement left knee Postoperative Diagnosis: 1. Tear medial and lateral meniscus left knee 2. 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 Reactive synovitis medial, lateral and suprapatellar compartments left knee Procedure(s) Performed: 1. Arthroscopic partial medial and lateral meniscectomy left knee 2. Arthroscopic microfracture lateral femoral condyle left knee 3. Arthroscopic partial synovectomy medial, lateral and suprapatellar compartments left knee Anesthesia: MARKA, local Surgeon: Vargas Clayton Estimated Blood Loss (ml): 11 Pathology: none sent Condition: stable Disposition: PACU Indications for Procedure: 67-year-old patient seen with progressive left knee pain. After having treatment options discussed, she elected to proceed with arthroscopy. Operative Findings: See description of procedure Description of Procedure: Patient was taken to the operative suite. Patient underwent a general anesthetic by the department of anesthesia. Patient was given preoperative antibiotics. The left lower extremity was placed in a well-padded arthroscopic leg olvera. The left leg was prepped and draped in the normal sterile orthopedic fashion. A lateral parapatellar and suprapatellar incision was made. Trochars were inserted. Arthroscopy was initiated. Suprapatellar pouch revealed diffuse thick reactive synovitis. The patellofemoral joint appeared to articulate congruently. There was grade 1/2 chondromalacia of the patellofemoral joint without osteochondral tears. The scope was guided into the medial gutter. No loose bodies or plica were identified. The scope was then guided into the medial compartment. A medial parapatellar incision was made. Trocar inserted followed by probe. There was a radial tear posterior horn medial meniscus. Grade 1/2 chondromalacia changes of the medial compartment without tears. There was some thick reactive synovitis anteriorly. I performed a partial medial meniscectomy getting down to stable meniscal tissue. I performed a partial synovectomy decompressing the reactive synovitis. The residual meniscus was probed and was found to be stable. There was good decompression of the synovitis. Scope and probe were then guided into the intercondylar notch. Cruciates were identified, probed and found to be stable. The scope and probe were then guided into lateral compartment. There was a c omplex tear mid body and anterior horn lateral meniscus. There was area of grade 3/4 chondromalacia lateral femoral condyle with osteochondral flap tears present. There was some thick reactive synovitis anteriorly. I performed a partial lateral meniscectomy getting down to stable meniscal tissue. I performed a chondroplasty of the lateral femoral condyle getting down to stable osteochondral tissue. I performed a partial synovectomy decompressing reactive synovitis. The residual meniscus was stable. There was good decompression of synovitis. There was an area of grade 4 chondromalacia lateral femoral condyle. I introduced a microfracture awl. I performed a microfracture to that area penetrating the bone with resultant bleeding at the microfracture site. I again probed the residual osteochondral surface was stable. The scope was in guided back into the suprapatellar compartment. I used a motorized shaver into the suprapatellar compartment. I debrided some piecemeal fragments of meniscus that I encountered. I performed a partial synovectomy. Shaver was removed. There was good decompression of the synovitis. I now took one more look around the entire knee, no residual debris. Instruments were now removed from the joint. The joint was infiltrated with .25% Marcaine. Steri-Strips were applied to the portal sites. Sterile dressings were applied. The patient was placed into a JUVENTINO hose. No tourniquet was utilized. The patient was awakened, transferred to a bed and taken to recovery stable satisfactory condition.
[2022-10-31 15:15] VITALS: RESP 20
[2022-10-31] MEDS ORDERED: HYDROcodone/APAP 5-325MG 1 EACH TAB ONE (15:25)
[2022-10-31] MEDS ORDERED: METOCLOPRAMIDE 5 MG/ML 2 ML VIAL ONE (15:28)
[2022-10-31] MEDS ORDERED: ONDANSETRON 4 MG/2 ML VIAL ONE (15:29)
[2022-10-31] MEDS ORDERED: METOCLOPRAMIDE 5 MG/ML 2 ML VIAL IVP ONE (15:30)
[2022-10-31] MEDS ORDERED: ONDANSETRON 4 MG/2 ML VIAL IVP ONE (15:30)
[2022-10-31 16:17] VITALS: BP 155/78; PULSE 88
== END 2022-10-31 16:19 | disposition home or self-care (01) ==
LOC: OR 11:28
PROVIDERS: ATTEND Orthopaedic Surgery
DX: S83.282A Other tear of lateral meniscus, current injury, left knee, initial encounter (principal); S83.242A Other tear of medial meniscus, current injury, left knee, initial encounter; M94.262 Chondromalacia, left knee; M65.88 Other synovitis and tenosynovitis, other site; J45.909 Unspecified asthma, uncomplicated; E03.9 Hypothyroidism, unspecified; Z79.890 Hormone replacement therapy; Z79.1 Long term (current) use of non-steroidal anti-inflammatories (NSAID); Z79.51 Long term (current) use of inhaled steroids; Z87.891 Personal history of nicotine dependence; M19.90 Unspecified osteoarthritis, unspecified site; Z91.048 Other nonmedicinal substance allergy status; Z88.2 Allergy status to sulfonamides; X58.XXXA Exposure to other specified factors, initial encounter
CPT/HCPCS: 29880; 29879; J1100; J2765; J0690; J2405; 93005

== ENCOUNTER → 2023-10-07 | Outpatient (CLI) | payer MEDICARE ==
--- NOTE | 2023-10-08 09:18 | MM ---
Reason for Exam: Screening (asymptomatic). Last mammogram was performed 5 year(s) and 11 month(s) ago. Patient History: Menarche at age 13. First Full-Term at age 21. Postmenopausal. Paternal grandmother had breast cancer, age 50. Risk Values: Aure 5 year model risk: 1.4%. NCI Lifetime model risk: 4.3%. Prior Study Comparison: 01/25/2011 Screening Mammogram, [facility]. 12/03/2017 Bilateral Screening Mammogram, [facility]. Tissue Density: There are scattered fibroglandular densities. Findings: Analyzed By CAD. There is no suspicious group of microcalcifications or new suspicious mass in either breast. Overall Assessment: Negative, BI-RAD 1 Management: Screening Mammogram of both breasts in 1 year. . Patient should continue monthly self-breast exams. A clinical breast exam by your physician is recommended on an annual basis. This exam should not preclude additional follow-up of suspicious palpable abnormalities. Note on Aure scores and lifetime risk: 1. A Aure score greater than 3% is considered moderate risk. If this is the case, consider specialist referral to assess eligibility for a risk reducing agent. 2. If overall lifetime risk for the development of breast cancer is 20% or higher, the patient may qualify for future screening with alternating mammogram and breast MRI. Electronically signed and approved by: Sotero Stone M.D. Radiologis
== END | disposition home or self-care (01) ==
LOC: RADMAMWWP 07:43
PROVIDERS: ATTEND Family Medicine
DX: Z12.31 Encounter for screening mammogram for malignant neoplasm of breast (principal); Z78.0 Asymptomatic menopausal state; Z80.3 Family history of malignant neoplasm of breast
CPT/HCPCS: 77063; 77067